=== PATIENT | female | born 1965 | race Caucasian/White ===

== ENCOUNTER 2020-10-26 07:15 | Day surgery (SDC) | payer BC ==
[~2020-10-26] VITALS: Ht 160 cm; Wt 69.0 kg
[~2020-10-26 07:15] MED LIST: ALLEGRA ALLERG180 MG PO; BELBUCA900 MCG; CARBATROL200 MG PO; DULOXETINE HCL60 MG PO; IMITREX25 MG PO; MONTELUKAST SOD10 MG PO; NEURONTIN600 MG PO; OMEPRAZOLE20 M2; OXYCODONE HCL5 MG PO; QUETIAPINE FUMA25 MG PO; SENNA PLUS TAB1 EACH; UQORA; WELLBUTRIN SR150 MG PO; ZYRTEC10 MG PO
--- NOTE | 2020-10-26 10:11 | NUR ---
[facility] NON RESPONSIVE TO NOXIOUS STIMULI WITH OPA IN PLACE. 1010 NO CHANGE IN PT STATUS.
--- NOTE | 2020-10-26 11:10 | NUR ---
PT ARRIVED FROM PACU TO DAY SURGERY RM 7 DROWSY. PT SLEEPING IN LOCKED AND LOWERED BED, SIDE RAILS UP, CALL LIGHT WITHIN REACH, AT THE BEDSIDE. NO FURTHER REQUESTS AT THIS TIME.
--- NOTE | 2020-10-26 12:20 | NUR ---
IN FOR HOURLY ASSESSMENT. PT SLEEPING IN LOCKED AND LOWERED BED, SIDE RAILS UP, CALL LIGHT WTHIN REACH
--- NOTE | 2020-10-26 12:24 | NUR ---
JINGLE WRITER CONSULTED REGARDING BLOOD PRESSURE. JINGLE WRITER IN TO ADMINISTER MEDICATION. WILL CONTINUE TO MONITOR.
--- NOTE | 2020-10-26 13:15 | NUR ---
PATIENT PUSHES HER CALL LIGHT AND ASKS TO AMBULATE TO THE BATHROOM. SHE DOES WELL WITH THIS. SHE VOIDS 450 ML YELLOW URINE WITH SOME TRACE OF STOOL. SHE IS BACK IN HER ROOM AND HER IS ASSISTING HER WITH GETTING DRESSED.
--- NOTE | 2020-10-26 13:43 | NUR ---
PT LEFT DAY SURGERY RM 7 VIA WHEELCHAIR. PT TRANSFERRED INDEPENDENTLY FROM WHEELCHAIR TO VEHICLE WITH NO COMPLICATIONS. PROVIDED TRANSPORATION.
--- NOTE | 2020-10-26 14:16 | NUR ---
BLOOD PRESSURE RETURNED TO BASELINE. PT RESTING IN LOCKED AND LOWERED BED, CALL LIGHT WITHIN REACH, AT THE BEDSIDE.
--- NOTE | 2020-10-29 19:26 | OR ---
[facility] [address], [place] [address] Signed DATE OF OPERATION: 10/26/2020 SURGEON: Soumya Sanchez MD PREOPERATIVE DIAGNOSIS: Interstitial cystitis. POSTOPERATIVE DIAGNOSIS: Interstitial cystitis. PROCEDURE: Diagnostic cystoscopy with hydrodistention. ANESTHESIA: General. ESTIMATED BLOOD LOSS: None. COMPLICATIONS: None. SPECIMENS: None. DRAINS: None. INDICATIONS FOR PROCEDURE: The patient is a very pleasant 54-year-old female, who is relatively new to me. She has a history of severe chronic pelvic pain and interstitial cystitis. She had tried many treatments in the past; however, she had never been undergone cystoscopy with hydrodistention. After discussion of the risks and benefits of the procedure, she has agreed to proceed with hydrodistention this morning. OPERATIVE FINDINGS: 1. On cystoscopy, there was no evidence of any suspicious masses, lesions, or stones. Bilateral ureteral orifices are in their normal anatomic location effluxing clear urine. Of note, the bilateral ureteral orifices are somewhat diminutive in size. 2. The patient's bladder filled to a total of 750 mL at maximum hydrodistention, was 8 Electronically Signed By: SOUMYA SANCHEZ MD 10/29/20 1926 PATIENT NAME: HERNANDO SOTO OPERATIVE REPORT DATE OF : 65 REPORT #: [id number] PHYSICIAN: SOUMYA SANCHEZ MD PCP: JP EAGLE REPORT IS CONFIDENTIAL AND NOT TO BE RELEASED WITHOUT AUTHORIZATION [facility] [address], [place] [address] Signed minutes. The procedure was performed without difficulty, and there was no significant hemorrhage during the distention. DESCRIPTION OF PROCEDURE: After informed consent obtained, the patient was taken back to the operating room. [facility] operating room table, where general anesthesia was induced. She was placed in the dorsal lithotomy position, and her genitalia were prepped and draped in standard sterile fashion. Using a 30-degree lens on a 21-Mosotho introducer, a rigid cystoscope was inserted per urethra into her bladder under direct visualization. Panendoscopic views of the bladder were then obtained. Please see above findings. After emptying the bladder of all urine, the patient's bladder was then re-distended with fresh water. Once fully distended, I then marked at the time to begin the distention. Total time of distention was 8 minutes. With distention, there was some pronounced mucosal blood vessels, however, there was no evidence of any Hunner's lesions or ulcers. At the end of distention, the patient's bladder was then drained of 750 mL of water. Repeat cystoscopy revealed no evidence of any active hemorrhage. The patient's bladder was then drained, and the cystoscope was removed. The procedure was then terminated. The patient tolerated the procedure well without any complication. She will now be transferred to the Postanesthesia Care Unit in stable condition. DISPOSITION: I discussed the details of today's procedure with the patient's and answered all of his questions. The patient is already on a pain contract with a local physician, so she did not receive any additional opioid medication today; however, she was given a prescription for B and O suppository 16.2/30 one per rectum q.12 hours p.r.n. bladder spasms. She was also given prescriptions for Pyridium and Cipro 500 mg p.o. b.i.d. for a total of 7 days. She will be scheduled return to clinic in 8 weeks for her first postoperative evaluation. Soumya Sanchez MD AR/MODL /[id number] Copies: Electronically Signed By: SOUMYA SANCHEZ MD 10/29/20 1926 PATIENT NAME: HERNANDO SOTO OPERATIVE REPORT DATE OF : 65 REPORT #: [id number] PHYSICIAN: SOUMYA SANCHEZ MD PCP: JP EAGLE REPORT IS CONFIDENTIAL AND NOT TO BE RELEASED WITHOUT AUTHORIZATION [facility] [address] [place] [address] [place], [place] [address] Signed ~ Electronically Signed By: SOUMYA SANCHEZ MD 10/29/20 192 PATIENT NAME: HERNANDO SOTO OPERATIVE REPORT DATE OF : 65 REPORT #: [id number] PHYSICIAN: SOUMYA SANCHEZ MD PCP: JP EAGLE REPORT IS CONFIDENTIAL AND NOT TO BE RELEASED WITHOUT AUTHORIZATION
== END 2020-10-26 13:35 | disposition home or self-care (01) ==
LOC: DS 07:15
PROVIDERS: ATTEND Urology
PROC: 0T7B8ZZ Dilation of Bladder, Via Natural or Artificial Opening Endoscopic (ICD-10-PCS; principal; 2020-10-26 08:05)
DX: N30.10 Interstitial cystitis (chronic) without hematuria (principal); M62.89 Other specified disorders of muscle; F32.9 Major depressive disorder, single episode, unspecified; K21.9 Gastro-esophageal reflux disease without esophagitis; G89.29 Other chronic pain; Z88.8 Allergy status to other drugs, medicaments and biological substances; Z79.899 Other long term (current) drug therapy; Z20.828 Contact with and (suspected) exposure to other viral communicable diseases; Z01.812 Encounter for preprocedural laboratory examination
CPT/HCPCS: 00910; J0690; J1100; J1170; J1200; J1885; J2250; J2405; J2704; J2765; J3010; J7121